=== PATIENT | female | born 1950 | race Caucasian/White ===

== ENCOUNTER 2022-05-26 11:47 | Emergency (ER) | payer OTHER, SELFPAY ==
--- NOTE | ~2022-05-26 | XR_ITS ---
XR wrist LT min 3V DATE: 05/26/2022 13:17 INDICATION: Fall. Left wrist and hand pain TECHNIQUE: 4 views of left breast COMPARISON: None FINDINGS: There is osteoarthritic joint space narrowing at the triscaphe and first carpometacarpal reny ints, including mild spurring at the latter.. No fracture or dislocation, periosteal reaction or bone destruction, erosive change or chondrocalcino sis is noted. 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 CARE ADMINISTRATOR
--- NOTE | ~2022-05-26 | XR_ITS ---
Left Hand Technique: PA, oblique, and lateral views were obtained. Clinical History: Pain Findings: No acute fracture or dislocation is seen. Osseous alignment is anatomic. Joint spaces are p reserved. Soft tissues are unremarkable. Impression: Unremarkable left hand. Reviewed, dictated and finalized at location M. LE FINISHER Impression: Unremarkable left hand.
--- NOTE | ~2022-05-26 | CT_ITS ---
EXAMINATION: CT cervical spine wo con DATE: 05/26/2022 13:23 INDICATION: Fall with head injury TECHNIQUE: Computed tomography (CT) of the cervical spine was performed without intravenous contrast. Automated exposure control and iterative reconstruction technique were employed. The dose-length pro duct was 672.79 mGy-cm. COMPARISON: None FINDINGS: Reversal of the normal cervical lordosis. 1-2 mm anterolisthesis C4 on C5. Anterior fusion at C5-C6 a long with fusion posteriorly at the bilateral C5-C6 facet joints. Remaining vertebral body heights ar e normal. No fracture. Severe disc height loss at C6-C7 and C7-T1. Moderate disc height loss at C4-C5 and T2-T3 through T4-T5. Mild disc height loss at C3-C4 and T1-T2. Cervical soft tissues are unremar kable. Visualized portions of the upper lungs are clear. The following disc levels are specifically d iscussed: C2-C3: There is mild right and mild to moderate left uncovertebral joint osteoarthritis. There is mod erate right and severe left facet joint osteoarthritis. There is mild left neural foraminal stenosis. There is no central canal stenosis. C3-C4: There is mild bilateral uncovertebral joint osteoarthritis. There is mild right and moderate l eft facet joint osteoarthritis. There is mild bilateral neural foraminal stenosis. There is no centra l canal stenosis. C4-C5: There is mild bilateral uncovertebral joint osteoarthritis. There is mild right and severe lef t facet joint osteoarthritis. There is mild left neural foraminal stenosis. There is no central canal stenosis. C5-C6: Bilateral uncovertebral and bilateral facet joints are fused. There is no neural foraminal s tenosis. There is mild central canal stenosis. C6-C7: Small posterior endplate osteophytes. There is severe bilateral uncovertebral joint osteoart hritis. There is mild bilateral facet joint osteoarthritis. There is mild bilateral neural foraminal stenosis. There is mild central canal stenosis. C7-T1: There is moderate bilateral uncovertebral joint osteoarthritis. There is severe left and moder ate to severe right facet joint osteoarthritis. There is mild right and moderate left neural foramina l stenosis. There is no central canal stenosis. IMPRESSION: 1. Severe cervical spondylosis with anterior and posterior spinal fusion at C5-C6. No acute osseous a bnormality. Reviewed, dictated and finalized at location A. INE CUTTER IMPRESSION: 1. Severe cervical spondylosis with anterior and posterior spinal fusion at C5- C6. No acute osseous abnormality.
--- NOTE | ~2022-05-26 | XR_ITS ---
Left elbow Technique: AP, oblique, and lateral views were obtained. Clinical History: Pain Findings: No acute fracture or dislocation is seen. Osseous alignment is anatomic. Joint spaces are p reserved. Small spur noted at the coronoid process of the ulna. There is no displacement of the fat p ads, and soft tissues are unremarkable. Impression: No fracture or dislocation. Reviewed, dictated and finalized at location . SNAKER Impression: No fracture or dislocation.
--- NOTE | ~2022-05-26 | CT_ITS ---
Non-contrast Head CT History: Status post fall, forehead hematoma Technique: Axial non-contrast imaging of the brain was performed. Dose reduction technique was used on this scan by utilizing automated exposure control and iterative reconstruction technique. The dose -length product (DLP) was 681.00 mGy-cm. Findings: There is no evidence of intracranial hemorrhage, mass lesion, or acute infarct. Brain par enchyma appears normal. The ventricles and subarachnoid spaces are normal in size. The calvarium ap pears normal. The visualized paranasal sinuses and mastoid air cells are clear. There is hematoma in the left frontal scalp, soft tissue swelling extending to the left periorbital region. Impression: No intracranial abnormality seen. Left frontal scalp hematoma with soft tissue swelling extending to the left periorbital lesion. Reviewed, dictated and finalized at [facility]. UTER ANALYST Impression: No intracranial abnormality seen. Left frontal scalp hematoma with soft tissue swelling extending to the left per iorbital lesion.
--- NOTE | ~2022-05-26 | XR_ITS ---
Left Knee Technique: AP, lateral, and sunrise views were obtained. Clinical History: Pain Findings: No fracture or dislocation is seen. Total knee arthroplasty hardware in place, without evid ence of hardware complication. Chronic heterotopic ossification noted along the medial femoral condyl e. Soft tissues are otherwise unremarkable. No joint effusion is seen. Impression: No acute abnormality. Total knee arthroplasty. Heterotopic ossification along the medial femoral condyle, possibly indicative of chronic/remote MCL injury. Reviewed, dictated and finalized at location M. E HAND DREDGE OR BARGE Impression: No acute abnormality. Total knee arthroplasty. Heterotopic ossification along the medial femoral condyle, possibly indicative of chronic/remote MCL injury.
[2022-05-26 11:49] VITALS: BP 137/83; PULSE 99; RESP 16; TEMP 37.2; O2SAT 99
--- NOTE | 2022-05-26 12:39 | ED.HEATRA ---
HPI - Head Injury General Chief complaint: Head Injury Stated complaint: fall Time Seen by Provider: 05/26/22 12:20 Source: patient Mode of arrival: ambulatory Limitations: no limitations History of Present Illness HPI Narrative: Patient is a 72-year-old female who presents to the ED with report of a head injury. Patient reports she was outside today and accidentally stepped into a hole, causing her to fall. She landed on her left side. She hit her head in the fall and sustained a large hematoma to her left forehead. She did not lose consciousness. She complains of pain to her left forehead, left elbow, left wrist, left knee. Denies neck or back pain. Denies prodromal sx's prior to fall, dizziness, nausea, vision changes, confusion. Related Data Allergies Allergy/AdvReac Type Severity Reaction Status Date / Time nitrofurantoin Allergy Swelling Verified 05/26/22 12:01 [From Macrodantin] Sulfa (Sulfonamide Allergy Hives Verified 05/26/22 12:01 Antibiotics) Review of Systems Review of Systems: CONSTITUTIONAL: Denies fever, chills, or sweats. EYES: Denies visual changes. CARDIOVASCULAR: Denies chest pain. RESPIRATORY: Denies dyspnea. GASTROINTESTINAL: Denies abdominal pain, nausea, vomiting. SKIN: Reports hematoma to left forehead. MUSCULOSKELETAL: Reports pain to the left elbow, left wrist, left knee. Denies back pain, neck pain. NEUROLOGIC: Reports HI, headache. Denies LOC, dizziness, numbness, confusion, or weakness. All systems reviewed & are unremarkable except as noted in HPI and below PMFSH Past Medical History Medical History (Updated 05/26/22 @ 13:41 by Mahogany Hoskins PA-C) Anxiety Depression HLD (hyperlipidemia) Hypothyroid Surgical History Surgical History (Updated 05/26/22 @ 13:41 by Mahogany Hoskins PA-C) History of fusion of cervical spine History of left knee replacement Social History Social History (Updated 05/26/22 @ 13:41 by Mahogany Hoskins PA-C) Smoking status: Never smoker Exam Narrative: GENERAL: Well appearing, obese, non-toxic, in no acute distress. HEAD: Normocephalic. Large hematoma to L forehead with overlying abrasions. No deeper wounds or lacerations. EYES: PERRLA/EOMI, conjunctiva clear. NECK: Supple. No adenopathy, no masses. No midline spinal tenderness. RESPIRATORY: Airway patent, respirations nonlabored. Clear to auscultation bilaterally, no rales, rhonchi, wheezing. CARDIOVASCULAR: Regular rate and rhythm without murmurs, rubs, or gallops. Peripheral pulses 2+ and equal bilaterally. ABDOMINAL: Soft, nontender, nondistended, no hepatosplenomegaly. Normoactive BS. MUSCULOSKELETAL: Moves all extremities. Strength/ROM intact without gross deformities. No midline spinal tenderness. Mild tenderness over lateral left elbow. TTP to distal radius of left wrist, proximal L thumb. Mild tenderness over fourth and fifth MCP joints of left hand. TTP to lateral left knee. No discomfort with ballottement of patella. SKIN: Warm, dry, normal color. No rashes. Scattered abrasions noted to left wrist/hand. NEURO: A&O X3. Speech clear. Cranial nerves II-XII grossly intact. Steady gait. No ataxic movements. No focal deficits. PSYCHIATRIC: Appropriate mood and affect. Normal interaction. Course Vital Signs Vital signs: Vital Signs Temperature 98.9 F 05/26/22 11:49 Pulse Rate 99 05/26/22 11:49 Respiratory Rate 16 05/26/22 11:49 Blood Pressure 137/83 05/26/22 11:49 Pulse Oximetry 99 05/26/22 11:49 Temperature 98.9 F 05/26/22 11:49 Pulse Rate 89 05/26/22 14:02 Respiratory Rate 14 05/26/22 14:02 Blood Pressure 127/87 05/26/22 14:02 Pulse Oximetry 99 05/26/22 14:02 MDM - Head Injury MDM Narrative Medical decision making narrative: Patient presented to ED status post ground-level mechanical fall with head injury. No LOC. Hematoma to left forehead. Abrasions noted overlying hematoma, no deeper wounds that require re
[2022-05-26] MEDS: ACETAMINOPHEN 500 MG TABLET 1000 MG PO (12:56)
[2022-05-26] MEDS: TETANUS,DIPHTHERIA,AC PERTUSSIS ADULT (0.5 ML) BOOSTRIX IM (12:56)
--- NOTE | 2022-05-26 12:59 | PC.NURSE ---
Pt to CT and XRAY at this time.
[2022-05-26 14:02] VITALS: BP 127/87; PULSE 89; RESP 14; O2SAT 99
== END 2022-05-26 14:03 | disposition home or self-care (01) ==
PROVIDERS: Emergency Provider Physician Assistant
DX: S00.83XA Contusion of other part of head, initial encounter (principal); S63.502A Unspecified sprain of left wrist, initial encounter; E78.5 Hyperlipidemia, unspecified; E03.9 Hypothyroidism, unspecified; Z23 Encounter for immunization; Z98.1 Arthrodesis status; Z96.652 Presence of left artificial knee joint; M47.812 Spondylosis without myelopathy or radiculopathy, cervical region; M19.032 Primary osteoarthritis, left wrist; M18.9 Osteoarthritis of first carpometacarpal joint, unspecified; W18.39XA Other fall on same level, initial encounter
CPT/HCPCS: 70450; 72125; 73080; 73110; 73130; 73564; 90471; 90715; 99284; A9270